=== PATIENT | male | born 1955 | race Caucasian/White ===

== ENCOUNTER 2021-10-26 12:52 | Inpatient (IN) | payer MEDICARE ==
[2021-10-26 14:45] VITALS: BMI 24.2
[2021-10-26 16:42] LABS: Hemoglobin 8.7 g/dL (14.0-18.0)
[2021-10-26] MEDS ORDERED: Ondansetron ODT 4 MG TAB PO PRN (17:05)
[2021-10-26] MEDS ORDERED: Ondansetron PF 4 MG/2 ML Vial IVP PRN (17:05)
[2021-10-26] MEDS ORDERED: Acetaminophen 325 MG TAB PO PRN (17:05)
[2021-10-26] MEDS ORDERED: Acetaminophen 650 MG Suppository PR PRN (17:05)
[2021-10-26] MEDS ORDERED: Lorazepam 2 MG/ML VIAL IM PRN (17:49)
[2021-10-26] MEDS ORDERED: Lorazepam 1 MG TAB PO PRN (17:49)
[2021-10-26] MEDS: Sodium Chloride 0.9% 1,000 ML IV SCH (17:51)
[2021-10-26] MEDS ORDERED: Electrolyte Replacement Protocol FS PRN (18:00)
[2021-10-26] MEDS: Thiamine HCl 200 MG/2 ML VIAL SLOW IVP SCH (18:25)
[2021-10-26] MEDS: Nicotine 14 MG PATCH TD SCH (18:25)
[2021-10-26 18:54] LABS: Magnesium 1.7 mg/dL (1.6-2.6); Phosphorus 2.6 mg/dL (2.3-4.7)
[2021-10-26] MEDS ORDERED: GoLYTELY 4,000 ml Bottle PO SCH (19:00)
[2021-10-26] MEDS: Pantoprazole 40 MG VIAL IVP SCH (21:18)
[2021-10-26] MEDS ORDERED: Magnesium 2 GM/50 ML(in water) 2 GM in Premix Bag 1 BAG IVPB SCH (23:45)
[2021-10-26 23:55] LABS: Hemoglobin 8.7 g/dL (14.0-18.0)
[2021-10-27] MEDS: Sodium Chloride 0.9% 1,000 ML IV SCH ×3 (02:25→23:52)
[2021-10-27 06:17] LABS: #Eosinphils 0.3 thou/uL (0.0-0.7); #Lymphocytes 1.6 thou/uL (1.20-3.40); #Monocytes 0.6 thou/uL (0.11-0.59); #Neutrophils 4.4 thou/uL (1.40-6.50); %Basophils 0.1 % (0.0-1.0); %Eosinophils 3.7 % (0.0-10.0); %Lymphocytes 23.2 % (21.0-51.0); %Monocytes 8.8 % (0.0-10.0); %Neutrophils 64.2 % (42.0-75.0); Hemoglobin 7.5 g/dL (14.0-18.0); Mean Corpuscular HGB CONC 34.5 g/dL (32.0-36.0); Mean Corpuscular Hemoglobin 34.2 pg (27.0-31.0); Mean Corpuscular Volume 99.1 fL (78.0-98.0); Mean Platelet Volume 7.4 fL (7.4-10.4); Platelet Count 219 thou/uL (130-400); RBC Distribution Width 13.4 % (11.5-14.5); White Blood Cell (WBC) Count 6.9 thou/uL (4.8-10.8)
[2021-10-27 06:33] LABS: Anion Gap 12 mmol/L (10-20); BUN (Urea Nitrogen) 8 mg/dL (8.4-25.7); Calc. Creatinine Clearance 114 mL/min (70-130); Calcium 8.1 mg/dL (7.8-10.44); Carbon Dioxide 22 mmol/L (23-31); Chloride 103 mmol/L (98-107); Estimated GFR 100; Glucose 106 mg/dL (80-115); Potassium 3.4 mmol/L (3.5-5.1); Sodium 134 mmol/L (136-145)
[2021-10-27] MEDS ORDERED: Ketamine 50 MG/ML (10ML VIAL) ONE (07:29)
[2021-10-27] MEDS ORDERED: Glycopyrrolate 0.2 MG/ML 5 ML SYRINGE ONE ×2 (07:29→11:26)
[2021-10-27 08:10] LABS: Amphetamine Not Detected (NotDetected); Barbiturates Screen Not Detected (NotDetected); Benzodiazepine Screen Not Detected (NotDetected); Cocaine Metabolite Screen Not Detected (NotDetected); Methadone Not Detected (NotDetected); Methamphetamine Not Detected (NotDetected); Opiate Screen Not Detected (NotDetected); Oxycodone Screen Not Detected (NotDetected); Phencyclidine (PCP) Not Detected (NotDetected); THC/Cannabinoid Screen Not Detected (NotDetected); Tricyclic Screen Not Detected (NotDetected)
[2021-10-27] MEDS: Folic Acid 1 MG TAB PO SCH (08:16)
[2021-10-27] MEDS: Pantoprazole 40 MG VIAL IVP SCH (08:16)
[2021-10-27] MEDS: Multivit, Therapeutic 1 TAB PO SCH (08:16)
[2021-10-27] MEDS ORDERED: Midazolam HCl 2 mg/2 ml Vial ONE (11:19)
[2021-10-27] MEDS ORDERED: PROPOFOL 200 MG/20 ML VIAL ONE (11:26)
[2021-10-27 12:04] LABS: Syphilis Antibody Nonreactive (Nonreactive); Syphilis Antibody Index 0.03 S/CO (<1.00 Non-Reactive)
[2021-10-27] MEDS ORDERED: Potassium Chloride 20 MEQ TAB PO SCH (13:15)
[2021-10-27 13:38] LABS: Hemoglobin 7.9 g/dL (14.0-18.0)
[2021-10-27] MEDS ORDERED: Iron, Sodium Ferric Gluconate 250 MG in Sodium Chloride 0.9% 250 ML 250 ML IVPB SCH (14:00)
[2021-10-27 15:55] LABS: Hemoglobin 9.2 g/dL (14.0-18.0)
[2021-10-27] MEDS ORDERED: Cepastat Lozenges 1 LOZ PO PRN (17:08)
[2021-10-27] MEDS: Thiamine HCl 200 MG/2 ML VIAL SLOW IVP SCH (17:42)
[2021-10-27] MEDS: Nicotine 14 MG PATCH TD SCH (17:42)
[2021-10-27] MEDS ORDERED: Lorazepam 1 MG TAB PO PRN (17:49)
[2021-10-27 22:48] LABS: Hemoglobin 7.7 g/dL (14.0-18.0)
[2021-10-28 06:04] LABS: #Eosinphils 0.3 thou/uL (0.0-0.7); #Lymphocytes 1.8 thou/uL (1.20-3.40); #Monocytes 0.7 thou/uL (0.11-0.59); #Neutrophils 4.6 thou/uL (1.40-6.50); %Basophils 0.5 % (0.0-1.0); %Lymphocytes 23.7 % (21.0-51.0); %Monocytes 9.7 % (0.0-10.0); %Neutrophils 62.1 % (42.0-75.0); Hemoglobin 7.5 g/dL (14.0-18.0); Mean Corpuscular HGB CONC 34.5 g/dL (32.0-36.0); Mean Corpuscular Hemoglobin 34.6 pg (27.0-31.0); Mean Platelet Volume 7.2 fL (7.4-10.4); Platelet Count 245 thou/uL (130-400); RBC Distribution Width 13.4 % (11.5-14.5); Red Blood Cell (RBC) Count 2.17 mill/uL (4.70-6.10); White Blood Cell (WBC) Count 7.4 thou/uL (4.8-10.8)
[2021-10-28 06:24] LABS: Anion Gap 14 mmol/L (10-20); BUN (Urea Nitrogen) 6 mg/dL (8.4-25.7); Calc. Creatinine Clearance 108 mL/min (70-130); Calcium 8.3 mg/dL (7.8-10.44); Carbon Dioxide 22 mmol/L (23-31); Chloride 104 mmol/L (98-107); Estimated GFR 99; Glucose 104 mg/dL (80-115); Potassium 3.5 mmol/L (3.5-5.1); Sodium 136 mmol/L (136-145)
[2021-10-28] MEDS ORDERED: Potassium Chloride 20 MEQ TAB PO SCH (08:00)
[2021-10-28 08:16] VITALS: BP 128/85; TEMP 99
[2021-10-28] MEDS ORDERED: Pantoprazole 40 MG VIAL IVP SCH (09:00)
[2021-10-28] MEDS: Sodium Chloride 0.9% 1,000 ML IV SCH (09:03)
[2021-10-28] MEDS: Multivit, Therapeutic 1 TAB PO SCH (09:05)
[2021-10-28] MEDS: Folic Acid 1 MG TAB PO SCH (09:05)
[2021-10-28] MEDS ORDERED: Lorazepam 1 MG TAB PO PRN (17:49)
[2021-10-29] MEDS ORDERED: Lorazepam 0.5 MG TAB PO PRN (17:49)
[2021-10-29] MEDS ORDERED: Thiamine 100 MG TAB PO SCH (18:00)
== END 2021-10-28 15:06 | disposition home or self-care (01) | DRG 378 ==
LOC: INTOOBSV 14:20 → SURG A 14:20 → OBSVTOIN 17:39
PROVIDERS: ADMIT Physician Assistant; ATTEND Physician Assistant
PROC: HZ2ZZZZ Detoxification Services for Substance Abuse Treatment (ICD-10-PCS; 2021-10-26)
PROC: 0DB58ZX Excision of Esophagus, Via Natural or Artificial Opening Endoscopic, Diagnostic (ICD-10-PCS; principal; 2021-10-27)
PROC: 0DB78ZX Excision of Stomach, Pylorus, Via Natural or Artificial Opening Endoscopic, Diagnostic (ICD-10-PCS; 2021-10-27)
PROC: 0DBN8ZZ Excision of Sigmoid Colon, Via Natural or Artificial Opening Endoscopic (ICD-10-PCS; 2021-10-27)
PROC: 0DBP8ZZ Excision of Rectum, Via Natural or Artificial Opening Endoscopic (ICD-10-PCS; 2021-10-27)
PROC: 0DBK8ZZ Excision of Ascending Colon, Via Natural or Artificial Opening Endoscopic (ICD-10-PCS; 2021-10-27)
DX: K57.31 Diverticulosis of large intestine without perforation or abscess with bleeding (principal); D62 Acute posthemorrhagic anemia; Z20.822 Contact with and (suspected) exposure to COVID-19; I10 Essential (primary) hypertension; K44.9 Diaphragmatic hernia without obstruction or gangrene; J44.9 Chronic obstructive pulmonary disease, unspecified; Z99.81 Dependence on supplemental oxygen; Z79.899 Other long term (current) drug therapy; K29.70 Gastritis, unspecified, without bleeding; K63.5 Polyp of colon; F10.10 Alcohol abuse, uncomplicated; R00.0 Tachycardia, unspecified; T45.4X5A Adverse effect of iron and its compounds, initial encounter; K62.1 Rectal polyp
CPT/HCPCS: 36415; 80048; 80306; 83735; 84100; 85025; 86780; 86850; 86900; 86901; 88305; 93005; 93010; C1776; C9113; G0378; J2250; J2704; J2916; J3411; J3475; J7050; U0003; U0005